=== PATIENT | female | born 1990 | race Hispanic/Latino ===

== ENCOUNTER 2025-08-14 08:25 | Emergency (ER) | payer MEDICAID ==
[~2025-08-14] VITALS: Ht 152.4 cm; Wt 116.6 kg
[2025-08-14 08:42] VITALS: BP 132/83; PULSE 82; RESP 12; TEMP 98.3; O2SAT 97
[2025-08-14 09:10] LABS: IMMATURE GRANULOCYTE ABSOLUTE 0.02 K/uL (0-1); NUCLEATED RED BLOOD CELLS 0.0 % (0.0-0.19); PLATELET COUNT (AUTO) 290 K/uL (130-400); RED BLOOD CELL COUNT(AUTO) 5.07 MIL/uL (4.00-5.50); RED CELL DISTRIBUTION WIDTH 14.4 % (11.0-15.5); WHITE BLOOD COUNT (AUTO) 8.8 K/uL (4.8-10.8)
[2025-08-14] MEDS: 0.9%NACL 1000ML 1,000 ML IV ONE (09:26)
[2025-08-14 09:30] LABS: ASPARTATE AMINOTRANSFERASE 20.0 U/L (10-37); CREATININE 0.7 mg/dL (0.5-1.0); GLOMERULAR FILTR. RATE CALC 115.0 mL/min (>90); GLUCOSE,RANDOM 103.0 mg/dL (70-105); SODIUM SERUM 139.0 mmol/L (136-145); TOTAL PROTEIN, SERUM 7.9 g/dL (6.0-8.3); UREA NITROGEN, BLOOD 13.0 mg/dL (7-18)
--- NOTE | 2025-08-14 09:43 | HMCIMG ---
EXAM: US Abdomen, Right Upper Quadrant. CLINICAL HISTORY: gallbladder TECHNIQUE: Right upper quadrant sonography performed with image documentation. COMPARISON: None provided. FINDINGS: LIVER: Measures 22 cm with increased echogenicity. No obvious mass lesion. GALLBLADDER: The gallbladder appears normal. No gallbladder wall thickening seen. The gallbladder wall measures 2 mm. No gallstones are evident. COMMON BILE DUCT: Within normal limits in size, measuring 2 mm. PANCREAS: The distal pancreas is obscured by bowel gas. The visualized portion of the pancreas appears within normal limits. RIGHT KIDNEY: Unremarkable, measures 10 x 4.2 x 4.4 cm. Normal renal contours. No renal mass or calculus. No hydronephrosis. IMPRESSION: Normal appearance of the gallbladder. Hepatomegaly with steatosis. /[place]
[2025-08-14 09:47] LABS: ADD UA MICROSCOPIC YES; APPEARANCE,URINE CLEAR (CLEAR); GLUCOSE, URINE (UA) NEGATIVE (NEGATIVE); LEUKOCYTE ESTERASE ,URINE NEGATIVE Leu/uL (NEGATIVE); NITRATE,URINE NEGATIVE (NEGATIVE); OCCULT BLOOD,URINE NEGATIVE (NEGATIVE)
[2025-08-14 09:48] LABS: HCG,QUALITATIVE URINE NEGATIVE (NEGATIVE)
[2025-08-14 09:49] LABS: SQUAMOUS EPITHELIAL CELL,UR MANY /HPF (0-2)
--- NOTE | 2025-08-14 12:06 | HMCIMG ---
EXAM: CT Abdomen and Pelvis without IV contrast CLINICAL HISTORY: Mid abdominal pain. TECHNIQUE: Thin collimated axial CT images of the abdomen and pelvis were obtained with sagittal and coronal reformatted images also submitted. CT scan is done according to ALARA (As Low As Reasonably Achievable). CONTRAST: None. COMPARISON: None. FINDINGS: Unremarkable visualized lung parenchyma. No focal abnormality within the gallbladder, pancreas, spleen, adrenals, or kidneys. Diffuse fatty infiltration of the liver. There is no obvious bowel wall thickening. Bowel loops are normal in caliber without evidence of obstruction or ileus. The appendix is normal. There is no abnormality within the urinary bladder. Unremarkable reproductive organs. No lymphadenopathy. No free fluid. There is a 4.5 x 3.6 x 3.0 cm fat-containing umbilical hernia. There is no bowel containing hernia. There is no acute osseous abnormality. IMPRESSIONS: 4.5 x 3.6 x 3.0 cm fat-containing umbilical hernia. There is no bowel containing hernia. No bowel obstruction or inflammation. No urinary calculi. No hydronephrosis. Fatty liver. /Lyle
[2025-08-14] MEDS: DICYCLOMINE 20MG (10MG/ML) AMP IM ONE (12:14)
[2025-08-14] MEDS ORDERED: DICY20TA2 PO (12:24)
[2025-08-14] MEDS ORDERED: ONDA-243 PO (12:24)
--- NOTE | 2025-08-14 12:24 | ERN ---
ED Note History of Present Illness Stated Complaint: ABD PAIN Chief Complaint: Abdominal Pain Time Seen by MD: 08:30 Dictation: 35-year-old female presenting to the emergency department mid abdominal pain nausea and vomiting had episode of diarrhea yesterday none today no bleeding. Allergies: Coded Allergies: trazodone (Unverified Allergy, Unknown, 08/14/25) Past Medical History Past Medical History: Anxiety, Bipolar, Depression Additional Past Medical Hx: NEUROPATHY Surgical History: LMP: Jul 25, 2025 : 3 Para: 1 Aborts: 0 Review of System Dictation Constitutional: Negative for fever,chills, and weight loss Eyes: Negative for injury, pain,redness, and discharge ENT: Negative for injury,pain or swelling Cardiovascular: Negative for chest pain, palpitations, and edema Respiratory: Negative for shortness of breath, cough, and wheezing, Abdomen/GI: Per HPI : Negative for injury, bleeding and discharge MS/Extremity: Negative for injury and deformity Skin: Negative for rash, and discoloration Neuro: Negative for headache, weakness, numbness, tingling, and seizure Psych: Negative for suicide ideation, homicidal ideation, and hallucinations Initial Vital Sign VS Vital Signs Date Time Temp Pulse Resp B/P (MAP) Pulse Ox O2 Delivery O2 Flow Rate FiO2 08/14/25 08:29 98.2 85 18 134/67 96 Room Air 0 08/14/25 08:42 21 Physical Exam Dictation General: awake, alert, NAD Head/Face: Normocephalic, atraumatic Eyes: PERRL, EOMI, vision at baseline ENT: oral cavity clear, TMs clear, no signs of infection Neck: Trachea midline, supple, no nuchal rigidity Cardiovascular: RRR, normal S1/S2, No MRGs, no JVD Respiratory: CTAB, no respiratory distress, No rales or wheezes Abdomen: Soft, diffuse tenderness to palpation, non-distended, normal bowel sounds, no guarding or rebound. Skin: Warm, dry, normal turgor, no rash MS/Extremity: Pulses equal, no cyanosis, neurovascular intact, FROM Neuro: COAx4, GCS 15, strength 5/5, CN 2-12 intact, normal cerebellar exam, normal gait, Psych: Normal behavior, mood, and affect normal Results (Laboratory/Radiology) Laboratory/Radiology Laboratory Tests Test 08/14/25 08:10 08/14/25 08:51 Urine Color YELLOW (YELLOW) Urine Appearance CLEAR (CLEAR) Urine pH 7.0 (5.0-8.0) Urine Specific [place] 1.032 (1.001-1.031) Urine Protein 30 mg/dL (NEGATIVE) H Urine Glucose (UA) NEGATIVE mg/dL (NEGATIVE) Urine Ketones NEGATIVE mg/dL (NEGATIVE) Urine Occult Blood NEGATIVE (NEGATIVE) Urine Nitrate NEGATIVE (NEGATIVE) Urine Bilirubin NEGATIVE mg/dL (NEGATIVE) Urine Urobilinogen 0.2 mg/dL (0.2-1.0) Urine Leukocyte Esterase NEGATIVE Josafat/uL Urine RBC 11-25 /HPF (0-1) H Urine WBC 2-5 /HPF (0-1) H Urine Squamous Epithelial Cells MANY /HPF (0-2) Urine Bacteria None /HPF (None Seen) Urine HCG, Qualitative NEGATIVE (NEGATIVE) White Blood Count 8.8 K/uL (4.8-10.8) Red Blood Count 5.07 MIL/uL (4.00-5.50) Hemoglobin 14.0 g/dL (12.0-16.0) Hematocrit 42.4 % (36-48) Mean Corpuscular Volume 83.6 fL (79-99) Mean Corpuscular Hemoglobin 27.6 pg (27.0-33.0) Mean Corpuscular Hemoglobin Concent 33.0 g/dL (32.0-36.0) Red Cell Distribution Width 14.4 % (11.0-15.5) Platelet Count 290 K/uL (130-400) Mean Platelet Volume 9.8 fL (7.5-10.5) Immature Granulocyte % (Auto) 0.2 % (0-1) Neutrophils (%) (Auto) 81.2 % (40.0-77.0) H Lymphocytes (%) (Auto) 15.2 % (21.0-51.0) L Monocytes (%) (Auto) 3.0 % (3.0-13.0) Eosinophils (%) (Auto) 0.3 % (0.0-8.0) Basophils (%) (Auto) 0.1 % (0.0-5.0) Neutrophils # (Auto) 7.1 K/uL (1.8-7.7) Lymphocytes # (Auto) 1.3 K/uL (1.0-4.8) Monocytes # (Auto) 0.3 K/uL (0.1-1.0) Eosinophils # (Auto) 0.03 K/uL (0.00-0.70) Basophils # (Auto) 0.01 K/uL (0.00-0.20) Absolute Immature Granulocyte (auto 0.02 K/uL (0-1) Nucleated Red Blood Cells 0.0 % (0.0-0.19) Sodium Level 139 mmol/L (136-145) Potassium Level 3.8 mmol/L (3.5-5.1) Chloride Level 103 mmol/L (101-111) Carbon Dioxide Level 25 mmol/L (21-32) Blood Urea Nitrogen 13 mg/dL (7-18) Creatinine 0.7 mg/dL (0.5-1.0) Glomerular Filtration Rate Calc 115 mL/min (>90) Random Glucose 103 mg/dL (70-105) Total Calcium 8.8 mg/dL (8.5-10.1) Total Bilirubin 0.6 mg/dL (0.2-1.0) Direct Bilirubin 0.1 mg/dL (0.0-0.3) Aspartate Amino Transf (AST/SGOT) 20 U/L (10-37) Alanine Aminotransferase (ALT/SGPT) 31 U/L (12-78) Alkaline Phosphatase 74 U/L (50-136) Total Protein 7.9 g/dL (6.0-8.3) Albumin 4.1 g/dL (3.5-5.0) Lipase 18 U/L (16-77) Labs Reviewed?: Yes ED Course ED Course Orders Procedure Category Date Status Time Basic Metabolic Panel LAB 08/14/25 Complete 08:41 Cbc With Differential LAB 08/14/25 Complete 08:41 Hepatic Function Panel LAB 08/14/25 Complete 08:41 Lipase LAB 08/14/25 Complete 08:41 Urinalysis Profile LAB 08/14/25 Complete 08:41 ,Urine Test LAB 08/14/25 Complete 08:41 0.9%Nacl 1000ml (Ns PHA 08/14/25 Complete 1000ml) 09:00 Ondansetron 4mg Inj PHA 08/14/25 Complete (Zofran 4mg Inj) 09:00 Us Abdominal Ruq\Ltd US 08/14/25 Resulted 08:48 Morphine 4mg Syg PHA 08/14/25 Complete (Morphine 4mg Syg) 10:30 Ct Abd/Pel Wo Con CT 08/14/25 Resulted Renal/Appy 11:20 Dicyclomine Hcl PHA 08/14/25 Complete (Bentyl 20mg Inj) 11:30 Current Medications Medications (Trade) Dose Ordered Sig/Devi Route PRN Reason Start Time Stop Time Status Last Admin Dose Admin Dicyclomine HCl (Bentyl 20mg Inj) 20 mg ONCE ONCE IM 08/14/25 11:30 08/14/25 11:31 DC 08/14/25 12:14 Morphine Sulfate (morPHINE 4MG SYG) 4 mg ONCE ONCE IVP 08/14/25 10:30 08/14/25 10:31 DC 08/14/25 10:26 Ondansetron HCl (zoFRAN 4MG INJ) 4 mg ONCE ONCE IVP 08/14/25 09:00 08/14/25 09:01 DC 08/14/25 09:26 Sodium Chloride 1,000 ml @ 0 mls/hr ONCE ONCE IV 08/14/25 09:00 08/14/25 09:01 DC 08/14/25 09:26 Vital Signs Date Time Temp Pulse Resp B/P (MAP) Pulse Ox O2 Delivery O2 Flow Rate FiO2 08/14/25 08:42 98.2 82 12 132/83 97 Room Air* 0 21 08/14/25 08:29 98.2 85 18 134/67 96 Room Air 0 Medical Decision Making MDM MDM: Differential diagnosis: Rationale: Tests considered and ordered secondary to shared decision making include: Previous outside records reviewed: Old ER visits. Risk of complication and/or morbidity or mortality of patient management: None Medications-Per medication reconciliation Need for hospitalization: Patient does not meet criteria for hospitalization. Need for emergency major/minor surgery: No There are no social concerns with this patient. Prescription drug management Prescriptions will include symptomatic care Patient's prior external medical records from other ER visits were reviewed by me as indicated. Prior testing and results from previous visits were reviewed. Prior tests were taken into account with medical decision making and resource utilization, independent historian/historians were used to obtain complete medical history. I independently interpreted the test that were performed, results were reviewed by me and considered findings on radiology if ordered. Medical management and examination interpretation discussions were had by me with other qualified healthcare professionals as indicated for the patient's care. 35-year-old female diffuse abdominal pain stable exam negative workup stable for discharge prescriptions given. DX & DISP Disposition: Discharge Departure Impression: Primary Impression: Acute abdominal pain Condition: Stable Scripts Dicyclomine HCl (Bentyl) 20 Mg Tab 1 TAB PO BID for irritable bowel symptoms for 10 Days, #20 TAB 0 Refills Prov: AJAY JOLLY MD 08/14/25 Ondansetron (Ondansetron Odt) 4 Mg Tab.rapdis 4 MG PO BID for vomiting for 5 Days, #10 TAB Prov: AJAY JOLLY MD 08/14/25 Referrals: EDGARDO KAY MD (PCP) AJAY JOLLY MD Aug 14, 2025 12:24
== END 2025-08-14 12:41 | disposition home or self-care (01) ==
LOC: EDH 08:25
DX: R10.84 Generalized abdominal pain (principal); F41.9 Anxiety disorder, unspecified; F31.9 Bipolar disorder, unspecified
CPT/HCPCS: 99285; 74176; 96374; 76705; 96361; 96375; 80076; 80048; 83690; 85025; 81001; 81025; 36415; 96372; J7030; J2405; J2270; J0500